=== PATIENT | female | born 1995 | race African-American/Black ===

== ENCOUNTER 2019-07-29 19:53 | Emergency (ER) | payer MEDICAID ==
[~2019-07-29] VITALS: Ht 175.3 cm; Wt 71.0 kg
[2019-07-30] VITALS: BP 118/74
[2019-07-30] MEDS ORDERED: IBUPROFEN 600MG TABLET PO ONE
== END 2019-07-30 00:25 | disposition left against medical advice (07) ==
LOC: ER 19:53
DX: R07.89 Other chest pain (principal); I25.2 Old myocardial infarction; M32.9 Systemic lupus erythematosus, unspecified; F12.10 Cannabis abuse, uncomplicated
CPT/HCPCS: 93005; 99283

== ENCOUNTER 2023-04-19 01:32 | Emergency (ER) | payer MEDICAID ==
[~2023-04-19] VITALS: Ht 172.7 cm; Wt 93.7 kg
[2023-04-19 01:37] VITALS: O2SAT 99
[2023-04-19 03:00] LABS: BASOPHILS % 0.9 % (0.0-2.0); DIFFERENTIAL COMMENT 0; HEMATOCRIT. 33.1 % (36.0-48.0); LYMPHOCYTES % 37.8 % (20.0-50.0); MEAN CORPUSCULAR HEMOGLOBIN 25.9 pg (28.0-32.0); MEAN CORPUSCULAR HGB CONC 33.1 g/dL (31.0-37.0); MEAN CORPUSCULAR VOLUME 78.3 fL (81.0-99.0); MEAN PLATELET VOLUME 7.1 fl (7.4-10.4); MONOCYTES % 9.3 % (2.0-8.0); PLATELET 343 x1000/uL (130-400); RED BLOOD CELL COUNT 4.23 mill/uL (4.2-5.4); RED CELL DISTRIBUTION WIDTH 15.3 % (11.6-14.6); WHITE BLOOD COUNT 5.8 x1000/uL (4.5-11.0)
[2023-04-19] MEDS ORDERED: MORPHINE SULFATE 4 MG/ML CPJ (NOT FOR IM USE) IV STA (03:00)
[2023-04-19] MEDS ORDERED: ONDANSETRON HCL 4MG/2ML INJ IV STA (03:00)
[2023-04-19] MEDS ORDERED: SODIUM CHLORIDE 0.9% 1,000 ML IV ONE (03:00)
[2023-04-19 03:03] LABS: CLARITY URINE CLEAR (CLEAR); COLOR URINE YELLOW (YELLOW); GLUCOSE URINE NEGATIVE (NEGATIVE); KETONES URINE NEGATIVE (NEGATIVE); LEUKOCYTE ESTERASE URINE NEGATIVE (NEGATIVE); NITRITE URINE NEGATIVE (NEGATIVE); OCCULT BLOOD URINE NEGATIVE (NEGATIVE); PH URINE 5.5 (4.5-8.0); PROTEIN URINE NEGATIVE (NEGATIVE); SPECIFIC GRAVITY URINE 1.002 (1.005-1.030); UROBILINOGEN URINE 0.2 E.U./dL (0.2-1.0)
[2023-04-19 03:08] LABS: CHLORIDE 107 mEq/L (98-107); INDEX HEMOLYSI 1 (1-3); INDEX ICTERIC 1 (1-4); INDEX LIPEMIC 1 (1-3); POTASSIUM 4.1 mEq/L (3.5-5.1); SODIUM 138 mEq/L (136-145)
[2023-04-19 03:18] LABS: HCG SCREEN NEGATIVE
[2023-04-19 03:24] LABS: ALANINE AMINOTRANSFERASE 20 IU/L (13-61); ALBUMIN 3.6 g/dL (3.4-5.0); ASPARTATE AMINOTRANSFERASE 15 IU/L (15-37); BILIRUBIN TOTAL 0.4 mg/dL (0.1-1.0); CALCIUM 9.4 mg/dL (8.5-10.1); CARBON DIOXIDE 27 mEq/L (21-32); CREATININE 0.8 mg/dL (0.6-1.3); GLUCOSE 100 mg/dL (70-105); PROTEIN TOTAL 7.4 g/dL (6.0-8.3); TROPONIN I HIGH SENSITIVITY 7 ng/L (<54); UREA NITROGEN BLOOD 9 mg/dL (7-21)
[2023-04-19 04:00] VITALS: TEMP 98.5
[2023-04-19] MEDS ORDERED: METH-653 MT (05:22)
[2023-04-19 05:39] VITALS: BP 118/73; PULSE 82; RESP 17
[2023-04-19] MEDS ORDERED: IOHEXOL-350 100 ML BOTTLE ONE (05:39)
== END 2023-04-19 05:53 | disposition home or self-care (01) ==
LOC: ER 01:52
DX: R05.9 Cough, unspecified (principal); F12.10 Cannabis abuse, uncomplicated; Z88.0 Allergy status to penicillin; Z88.2 Allergy status to sulfonamides; Z20.822 Contact with and (suspected) exposure to COVID-19
CPT/HCPCS: 80053; 81003; 84703; 85025; 85379; 84484; 36415; 71045; 71275; 96361; 96374; 96375; 99285; 87426; Q9967; J2405; J2270; J7030; C9803; Z7610 ×2